=== PATIENT | female | born 1985 | race Caucasian/White ===

== ENCOUNTER → 2017-07-09 | Outpatient (REF) | payer BC | LOC: M LAB REF 17:03 | PROVIDERS: ATTEND Physician Assistant Medical | DX: J02.9 Acute pharyngitis, unspecified (principal) ==

== ENCOUNTER → 2018-03-03 | Outpatient (REF) | payer BC | LOC: M LABWUC 18:44 | DX: J02.9 Acute pharyngitis, unspecified (principal) ==

== ENCOUNTER 2020-04-28 03:59 | Emergency (ER) | payer BC ==
[~2020-04-28] VITALS: Ht 160 cm; Wt 104.8 kg
[2020-04-28] MEDS ORDERED: ACET-683 PO (04:11)
[2020-04-28] MEDS ORDERED: predniSONE 20 MG TAB PO ONE (05:00)
[2020-04-28] MEDS ORDERED: methocarbamoL 750 MG TAB PO ONE (05:00)
[2020-04-28] MEDS ORDERED: PRED20TA PO (05:00)
[2020-04-28] MEDS ORDERED: ROBA750T4 PO (05:00)
[2020-04-28 05:19] VITALS: BP 153/97
== END 2020-04-28 05:37 | disposition home or self-care (01) ==
LOC: M ED 03:59
DX: S29.012A Strain of muscle and tendon of back wall of thorax, initial encounter (principal); X58.XXXA Exposure to other specified factors, initial encounter; Y92.9 Unspecified place or not applicable; Y93.9 Activity, unspecified; Y99.9 Unspecified external cause status; Z79.899 Other long term (current) drug therapy; Z88.8 Allergy status to other drugs, medicaments and biological substances